=== PATIENT | female | born 1985 | race African-American/Black ===

== ENCOUNTER 2024-08-26 04:37 | Inpatient (IN) | payer MEDICAID ==
[~2024-08-26] VITALS: Ht 168.9 cm; Wt 139.3 kg
[2024-08-26] MEDS: ALBUTEROL (0.083%) 2.5MG/3ML NEB HHN STA (05:51)
[2024-08-26] MEDS: IPRATROPIUM BROMIDE (0.02%) 0.5MG/2.5ML NEB HHN STA (05:52)
[2024-08-26 05:56] VITALS: PULSE 116; RESP 24; O2SAT 97
[2024-08-26] MEDS: METHYLPREDNISOLONE SOD SUCC 125MG/2ML (ACT-O-VIAL) IV STA (06:42)
[2024-08-26] MEDS: KETOROLAC 15MG/ML VIAL IV ONE (06:42)
[2024-08-26 07:28] LABS: BASOPHILS % 0.2 % (0.0-2.0); EOSINOPHILS % 0.4 % (0.0-5.0); HEMATOCRIT. 36.6 % (36.0-48.0); HEMOGLOBIN. 11.6 g/dL (12.0-16.0); LYMPHOCYTES % 13.8 % (20.0-50.0); MEAN PLATELET VOLUME 7.5 fl (7.4-10.4); MONOCYTES % 9.9 % (2.0-8.0); NEUTROPHILS % 75.7 % (40.0-76.0); PLATELET 292 x1000/uL (130-400); RED BLOOD CELL COUNT 4.52 mill/uL (4.2-5.4); RED CELL DISTRIBUTION WIDTH 16.4 % (11.6-14.6)
[2024-08-26 07:41] LABS: CREATININE 0.9 mg/dL (0.6-1.0); UREA NITROGEN BLOOD 19 mg/dL (9-23)
[2024-08-26 07:43] LABS: TROPONIN I HIGH SENSITIVITY < 4 ng/L (3.0-34)
[2024-08-26 14:30] VITALS: BP 126/82; PULSE 98; RESP 20; TEMP 36.6; O2SAT 96
[2024-08-26 14:35] VITALS: BP 126/82; PULSE 98; RESP 24; TEMP 36.6
[2024-08-26] MEDS ORDERED: ONDANSETRON HCL 4MG/2ML INJ IV PRN (15:15)
[2024-08-26] MEDS ORDERED: LEVOFLOXACIN 500MG PREMIX 100 ML IV SCH (15:15)
[2024-08-26] MEDS ORDERED: NALOXONE HCL 0.4MG/ML VIAL IV PRN (15:30)
[2024-08-26 16:00] VITALS: BP 138/74; PULSE 93; RESP 18; O2SAT 96
[2024-08-26] MEDS: HYDROCODONE/ACETAMINOPHEN 5/325MG TABLET PO PRN (16:31)
[2024-08-26] MEDS: ENOXAPARIN 40MG/0.4ML SYR SUBCUT SCH (17:45)
[2024-08-26] MEDS: LEVOFLOXACIN 750MG PREMIX 150 ML IV SCH (17:48)
[2024-08-26 20:00] VITALS: BP 138/76; PULSE 100; RESP 18; TEMP 36; O2SAT 98
[2024-08-27] VITALS (10 sets, daily range): BP systolic 109–135; BP diastolic 64–84; PULSE 71–105; RESP 18–24; TEMP 35.9–36.6; O2SAT 96–99
[2024-08-27] MEDS: IPRATROPIUM/ALBUTEROL 0.5-3(2.5)MG/3ML NEB HHN PRN (00:47)
[2024-08-27 08:11] LABS: HEMATOCRIT. 37.5 % (36.0-48.0); HEMOGLOBIN. 12.0 g/dL (12.0-16.0); MEAN PLATELET VOLUME 8.1 fl (7.4-10.4); PLATELET 317 x1000/uL (130-400); RED BLOOD CELL COUNT 4.70 mill/uL (4.2-5.4); RED CELL DISTRIBUTION WIDTH 16.5 % (11.6-14.6)
[2024-08-27 08:37] LABS: CREATININE 0.7 mg/dL (0.6-1.0); TRIGLYCERIDE 61 mg/dL (0-150); UREA NITROGEN BLOOD 16 mg/dL (9-23)
[2024-08-27 08:38] LABS: LDL CHOLESTEROL 98 mg/dL (5-100)
[2024-08-27] MEDS: ENOXAPARIN 40MG/0.4ML SYR SUBCUT SCH (10:03)
[2024-08-27] MEDS: METHYLPREDNISOLONE SOD SUCC 40MG/ML (ACT-O-VIAL) IV SCH (10:04)
[2024-08-27 19:35] LABS: LYMPHOCYTES % MANUAL 8.0 % (20.0-60.0); MONOCYTES % MANUAL 12.0 % (2.0-8.0); NEUTROPHILS % MANUAL 80.0 % (45.0-75.0); PLATELET ESTIMATE NORMAL
[2024-08-27 21:37] LABS: UCG KIT LOT# 946166; UCG SCREEN NEGATIVE
[2024-08-28] VITALS (9 sets, daily range): BP systolic 123–137; BP diastolic 64–82; PULSE 78–103; RESP 18–20; TEMP 36.3–36.6; O2SAT 96–99
[2024-08-28] MEDS: GUAIFENESIN 600MG ER TABLET PO SCH (21:49)
[2024-08-29] VITALS (11 sets, daily range): BP systolic 117–136; BP diastolic 66–91; PULSE 71–99; RESP 16–20; TEMP 36.2–36.8; O2SAT 94–98
[2024-08-29] MEDS: BUDESONIDE 0.5MG/2ML NEB HHN SCH (08:30)
[2024-08-29] MEDS: ALBUTEROL (0.083%) 2.5MG/3ML NEB HHN SCH (08:31)
[2024-08-29 08:36] LABS: HEMATOCRIT. 39.0 % (36.0-48.0); HEMOGLOBIN. 12.5 g/dL (12.0-16.0); MEAN PLATELET VOLUME 8.1 fl (7.4-10.4); PLATELET 334 x1000/uL (130-400); RED BLOOD CELL COUNT 4.86 mill/uL (4.2-5.4); RED CELL DISTRIBUTION WIDTH 17.0 % (11.6-14.6)
[2024-08-29 08:50] LABS: CREATININE 0.9 mg/dL (0.6-1.0); UREA NITROGEN BLOOD 22 mg/dL (9-23)
[2024-08-29 08:52] LABS: ASPARTATE AMINOTRANSFERASE 26 IU/L (<34); BILIRUBIN TOTAL 0.2 mg/dL (0.1-1.0); PROTEIN TOTAL 7.5 g/dL (6.0-8.3)
[2024-08-29] MEDS: METHYLPREDNISOLONE SOD SUCC 40MG/ML (ACT-O-VIAL) IV SCH (15:43)
[2024-08-29 18:22] LABS: LYMPHOCYTES % MANUAL 4.0 % (20.0-60.0); MONOCYTES % MANUAL 6.0 % (2.0-8.0); NEUTROPHILS % MANUAL 90.0 % (45.0-75.0); PLATELET ESTIMATE NORMAL
[2024-08-29] MEDS ORDERED: PULM50 HHN (20:37)
[2024-08-29] MEDS ORDERED: GUAI600T44 PO (20:37)
[2024-08-29] MEDS ORDERED: P50 PO (20:37)
[2024-08-29] MEDS ORDERED: ALBU2.5V13 HHN (20:37)
[2024-08-29] MEDS ORDERED: GUAI600T26 MT (20:37)
== END 2024-08-29 22:19 | disposition home or self-care (01) | DRG 141 ==
LOC: ER 04:37 → EDBEDREQ 05:40 → 6WST 07:45 → EDBEDREQTM 07:48 → EDBEDREQ 07:48 → ENRESERV 13:48
PROVIDERS: ADMIT Internal Medicine; ATTEND Internal Medicine
DX: J45.901 Unspecified asthma with (acute) exacerbation (principal); E66.9 Obesity, unspecified; J47.9 Bronchiectasis, uncomplicated; G47.33 Obstructive sleep apnea (adult) (pediatric); I51.7 Cardiomegaly; T38.0X5A Adverse effect of glucocorticoids and synthetic analogues, initial encounter; I10 Essential (primary) hypertension; M06.8A Other specified rheumatoid arthritis, other specified site; Z79.51 Long term (current) use of inhaled steroids; Z68.42 Body mass index [BMI] 45.0-49.9, adult; Y92.89 Other specified places as the place of occurrence of the external cause
CPT/HCPCS: 36415; 71045; 71250; 80048; 80053; 80061; 81025; 83880; 84145; 84484; 85025; 93005; 94070; 94640; 94664; 98960; 99285; J1650; J1885; J1956; J2919; J7626